=== PATIENT | female | born 1950 | race Caucasian/White ===

== ENCOUNTER → 2017-09-10 | Outpatient (CLI) | payer MEDICARE, MEDICAID | LOC: RAD 08-27 17:00 | DX: M81.0 Age-related osteoporosis without current pathological fracture (principal); Z13.820 Encounter for screening for osteoporosis; Z72.0 Tobacco use; Z12.31 Encounter for screening mammogram for malignant neoplasm of breast | CPT/HCPCS: G0202 ==